=== PATIENT | female | born 1990 | race Caucasian/White ===

== ENCOUNTER 2016-06-14 18:13 | Inpatient (IN) | payer OTHER ==
[~2016-06-14] VITALS: Ht 167.6 cm; Wt 88.0 kg
[~2016-06-14 18:13] MED LIST: ACET50TA PO; PRENTAB9 PO
[2016-06-14] MEDS ORDERED: LACTATED RINGER'S 1000 ML IV STA (19:20)
[2016-06-14] MEDS ORDERED: miSOPROStol 50 MCG 1/2 TAB (S0191) PO SCH (19:30)
[2016-06-14] MEDS ORDERED: PROMETHAZINE INJ 25 MG/ML VIAL (J2550) IV PRN (19:30)
[2016-06-14] MEDS ORDERED: hydrOXYzine 50 MG TAB PO PRN (19:30)
[2016-06-14] MEDS ORDERED: BUTORPHANOL 2 MG/ML INJ (J0595) IV PRN (19:30)
[2016-06-14 20:00] LABS: MEAN CORPUSCULAR HEMOGLOBIN 30.8 pg (27.0-33.0); MEAN CORPUSCULAR HGB CONC 34.2 g/dl (32.0-36.5); RED CELL DISTRIBUTION WIDTH 13.2 % (11.5-14.5); WHITE BLOOD COUNT 7.4 K/mm3 (4.0-10.0)
[2016-06-14 20:04] VITALS: BP 100/60
[2016-06-14 21:14] VITALS: BP 103/63
[2016-06-14] MEDS ORDERED: LR 1,000 ML IV SCH (22:02)
[2016-06-14 22:14] VITALS: BP 120/83
[2016-06-14] MEDS ORDERED: OXYTOCIN DRIP 30 UNITS in APPROPRIATE DILUENT 1 EA IV SCH (22:15)
[2016-06-15] VITALS (13 sets, daily range): BP systolic 104–141; BP diastolic 55–94
[2016-06-15] MEDS ORDERED: FENTANYL 2MCG/ML ROPIVACAINE 0.2% NACL 250 ML CADD As Ordered ONE (02:59)
[2016-06-15] MEDS ORDERED: ePHEDrine SULFATE 25 MG/5 ML(5MG/ML) SYRINGE As Ordered ONE (04:20)
[2016-06-15] MEDS ORDERED: REFRIGERATOR IV KEYS XX PRN (04:30)
[2016-06-15] MEDS ORDERED: FENTANYL/ROPIVACAINE/NACL CADD 250 ML EPIDURAL SCH (04:30)
[2016-06-15] MEDS ORDERED: ONDANSETRON 4MG/2ML VIAL (J2405) IV PRN ×2 (04:30→08:30)
[2016-06-15] MEDS ORDERED: ePHEDrine SULFATE 25 MG/5 ML(5MG/ML) SYRINGE IV PRN (04:30)
[2016-06-15] MEDS ORDERED: NALOXONE INJ 0.4 MG/1 ML VIAL (J2310) IV PRN (04:30)
[2016-06-15] MEDS ORDERED: LACTATED RINGER'S 1000 ML IV PRN (04:30)
[2016-06-15] MEDS ORDERED: EPIDURAL COMMENT XX SCH (04:30)
[2016-06-15] MEDS ORDERED: EPIDURAL/PCA KEYS XX PRN (04:30)
[2016-06-15] MEDS ORDERED: diphenhydrAMINE INJ 50MG/ML VIAL (J1200) IV PRN (04:30)
[2016-06-15] MEDS ORDERED: TERBUTALINE SULFATE 1 MG/ML VIAL (J3105) As Ordered ONE (04:48)
[2016-06-15 08:11] LABS: CORD GAS ABE V -7.4; CORD GAS HCO3 V 20.7 MEQ/L; CORD GAS O2 SAT V 42.9 %; CORD GAS PCO2 V 52.1 mmHg; CORD GAS PH V 7.218 UNITS; CORD GAS SBC V 17.3 MEQ/L; CORD GAS TCO2 V 22.3 MEQ/L
[2016-06-15] MEDS ORDERED: DOCUSATE SODIUM 100 MG CAP PO PRN (08:30)
[2016-06-15] MEDS ORDERED: OXYTOCIN DRIP 30 UNITS in APPROPRIATE DILUENT 1 EA IV ONE (08:30)
[2016-06-15] MEDS ORDERED: METHYLERGONOVINE MALEATE 0.2 MG TAB PO PRN (08:30)
[2016-06-15] MEDS ORDERED: MEASLES,MUMPS,RUBELLA VACCINE INJ (MMR-II) (90707) SC SCH (08:30)
[2016-06-15] MEDS ORDERED: RHOGAM 300 MCG (1500 IU) INJ (J2790) IM SCH (08:30)
[2016-06-15] MEDS: ACETAMINOPHEN 500 MG TAB PO PRN ×2 (09:25→16:45)
[2016-06-15] MEDS: PRENATAL VITAMIN TAB PO SCH (09:25)
--- NOTE | 2016-06-15 15:01 | HPE ---
DATE OF ADMISSION: 06/14/2016 25-year-old, 1, estimated date of delivery 06/08/2016, here at 41 weeks for induction of labor. Denies loss of fluid or bleeding. Fetus is active. Last normal menstrual period 08/24/2015 for expected date of delivery ([facility]ELBA) of 05/30/2016. Sonogram at 5 weeks confirmed date 06/08/2016. Anatomy scan within normal limits, followed by growth sonograms due to history of gastric bypass. ALLERGIES: No known drug allergies. MEDICAL/SURGICAL: 1. History gastric bypass 2014. 2. Cholecystectomy 2015. FAMILY HISTORY: Diabetes, hypertension and heart disease. SOCIAL HISTORY: Single. Father of the baby present and supportive. Remote history of Chlamydia in 2009. Denies tobacco, alcohol or drugs. OBJECTIVE: Prepregnancy weight 189, total weight gain 15 pounds. A positive, antibody negative, rubella equivocal. VDRL, hepatitis B, hepatitis C, HIV, gonorrhea and Chlamydia all negative. Declined genetic screening. 1-hour glucose not done due to surgical history. Week of blood sugar monitoring within normal limits. Group B strep is negative. No apparent distress. Vital signs are stable. Heart rate is regular. Respirations are easy. Abdomen soft, gravid, longitudinal lie. Rare contractions. heart 145, moderate variability with accelerations. Sterile vaginal exam 1 cm, 50%, -2 station, cephalic, light show. ASSESSMENT: Primipara at 41 weeks for induction of labor, Category I tracing. PLAN: Admit per consult Dr. Calderon. Misoprostol cervical ripening. The patient plans epidural.
[2016-06-15] MEDS: DIBUCAINE 1% OINTMENT 30GM TOP PRN (17:37)
[2016-06-15] MEDS: IBUPROFEN 800 MG TAB PO PRN (21:03)
[2016-06-16] MEDS: ACETAMINOPHEN 500 MG TAB PO PRN ×2 (03:54→12:57)
[2016-06-16 05:55] VITALS: BP 153/84
[2016-06-16] MEDS ORDERED: TERBUTALINE SULFATE 1 MG/ML VIAL (J3105) SC ONE (07:45)
[2016-06-16] MEDS: PRENATAL VITAMIN TAB PO SCH (08:42)
--- NOTE | 2016-06-16 11:21 | DN ---
DATE OF DELIVERY: 06/15/2016 PREDELIVERY DIAGNOSIS: Term , labor. POST DELIVERY DIAGNOSIS: Delivered. PROCEDURE: Outlet vacuum assisted vaginal delivery. MERCURY PURIFIER: Dr. Art Calderon ANESTHESIA: Epidural. ESTIMATED BLOOD LOSS: 300 mL. FINDINGS: 6 pound 8 ounce, 2936 gram female infant. 5, 8 and 8. Meconium present. DELIVERY SUMMARY: After approximately 45 minutes second stage the patient was noted to have tachycardia with recurrent deep variable decelerations. A decision was made to assist delivery at +3 station with obstetrical vacuum. The vacuum was applied at +3 station to the right occiput anterior (NATALIE) vertex . Delivery was accomplished without difficulty. A lose nuchal cord x1 was reduced manually. The shoulders delivered spontaneously with ease. The cord was doubly clamped and cut. The infant was handed off to the waiting water resources technical officer. The placenta delivered spontaneously and appeared to be intact. The patient received intravenous (IV) Pitocin immediately after delivery of the placenta. A second degree perineal laceration was repaired with #3-0 chromic in the usual fashion. Sponge and needle counts were correct.
[2016-06-16 18:00] VITALS: BP 130/74
[2016-06-16] MEDS: DIBUCAINE 1% OINTMENT 30GM TOP PRN (20:47)
[2016-06-17 06:14] VITALS: BP 139/67
[2016-06-17] MEDS: PRENATAL VITAMIN TAB PO SCH (07:39)
[2016-06-17] MEDS ORDERED: ACET50TA PO (09:22)
[2016-06-17] MEDS ORDERED: PRENTAB9 PO (09:22)
[2016-06-17] MEDS ORDERED: IBUP-1114 PO (09:22)
[2016-06-17] MEDS: IBUPROFEN 800 MG TAB PO PRN (10:22)
== END 2016-06-17 10:25 | disposition home or self-care (01) | DRG 560 ==
LOC: M LDI 18:13 → M OBS 06-15 14:54
PROVIDERS: ADMIT Advanced Practice Midwife; ATTEND Advanced Practice Midwife
PROC: 3E0P7GC Introduction of Other Therapeutic Substance into Female Reproductive, Via Natural or Artificial Opening (ICD-10-PCS; 2016-06-14)
PROC: 10D07Z6 Extraction of Products of Conception, Vacuum, Via Natural or Artificial Opening (ICD-10-PCS; principal; 2016-06-15)
PROC: 0KQM0ZZ Repair Perineum Muscle, Open Approach (ICD-10-PCS; 2016-06-15)
DX: O48.0 Post-term pregnancy (principal); O76 Abnormality in fetal heart rate and rhythm complicating labor and delivery; Z37.0 Single live birth; Z3A.41 41 weeks gestation of pregnancy; O70.1 Second degree perineal laceration during delivery; O69.82X0 Labor and delivery complicated by other cord entanglement, without compression, not applicable or unspecified

== ENCOUNTER → 2016-09-04 | Outpatient (REF) | payer OTHER ==
[~2016-09-04] MED LIST changes: +IBUP-1114 PO
[2016-09-04 12:45] LABS: FOLATE 15.4 NG/ML (>5.4)
[2016-09-04 12:51] LABS: ALBUMIN 3.7 GM/DL (3.2-5.2); ALBUMIN/GLOBULIN RATIO 1.03 (1.00-1.93); ALKALINE PHOSPHATASE 64 U/L (45-117); ALT/SGPT 22 U/L (12-78); ANION GAP 1 MEQ/L (8-16); AST/SGOT 13 U/L (15-37); BILIRUBIN,TOTAL 0.3 MG/DL (0.2-1.0); BLOOD UREA NITROGEN 13 MG/DL (7-18); CALCIUM LEVEL 9.1 MG/DL (8.5-10.1); CARBON DIOXIDE LEVEL 34 MEQ/L (21-32); CHLORIDE LEVEL 106 MEQ/L (98-107); CREATININE FOR GFR 0.67 MG/DL (0.55-1.02); GLOMERULAR FILTRATION RATE > 60.0 (>60); GLUCOSE, FASTING 85 MG/DL (70-105); POTASSIUM SERUM 3.9 MEQ/L (3.5-5.1); SODIUM LEVEL 141 MEQ/L (136-145); TOTAL PROTEIN 7.3 GM/DL (6.4-8.2)
[2016-09-04 12:56] LABS: BASO % 0.4 % (0.0-1.0); EOS # 0.1 K/mm3 (0.0-0.50); LARGE UNSTAINED CELL # 0.1 K/mm3 (0.0-0.4); LARGE UNSTAINED CELL % 1.3 % (0.0-4.0); LYMPH # 1.8 K/mm3 (1.5-6.5); LYMPH % 38.4 % (24.0-44.0); MEAN CORPUSCULAR HEMOGLOBIN 29.6 pg (27.0-33.0); MEAN CORPUSCULAR HGB CONC 32.2 g/dl (32.0-36.5); MEAN CORPUSCULAR VOLUME 91.7 fl (80.0-96.0); MONO # 0.3 K/mm3 (0.0-0.8); MONO % 6.2 % (0.0-5.0); NEUTROPHILS # 2.5 K/mm3 (1.8-7.7); NEUTROPHILS % 51.7 % (36.0-66.0); PLATELET COUNT, AUTOMATED 323 k/mm3 (150-450); RED CELL DISTRIBUTION WIDTH 12.9 % (11.5-14.5); WHITE BLOOD COUNT 4.8 K/mm3 (4.0-10.0)
[2016-09-04 13:26] LABS: VITAMIN B12 LEVEL 467 PG/ML (247-911)
[2016-09-09 00:06] LABS: VITAMIN D 1,25 DIHYDROXY 22.7 pg/mL (19.9-79.3)
== END ==
LOC: M SFHCCLAY 08:13
PROVIDERS: ATTEND Family Medicine
DX: Z98.84 Bariatric surgery status (principal)

== ENCOUNTER → 2016-12-29 | Outpatient (REF) | payer OTHER ==
[2016-12-29 18:35] LABS: ALBUMIN 3.7 GM/DL (3.2-5.2); ALBUMIN/GLOBULIN RATIO 0.95 (1.00-1.93); ALKALINE PHOSPHATASE 64 U/L (45-117); ALT/SGPT 16 U/L (12-78); ANION GAP 6 MEQ/L (8-16); AST/SGOT 10 U/L (15-37); BILIRUBIN,TOTAL 0.5 MG/DL (0.2-1.0); BLOOD UREA NITROGEN 12 MG/DL (7-18); CALCIUM LEVEL 9.2 MG/DL (8.5-10.1); CARBON DIOXIDE LEVEL 28 MEQ/L (21-32); CHLORIDE LEVEL 103 MEQ/L (98-107); CREATININE FOR GFR 0.76 MG/DL (0.55-1.02); GLOMERULAR FILTRATION RATE > 60.0 (>60); GLUCOSE, FASTING 82 MG/DL (70-105); POTASSIUM SERUM 3.8 MEQ/L (3.5-5.1); SODIUM LEVEL 137 MEQ/L (136-145); TOTAL PROTEIN 7.6 GM/DL (6.4-8.2)
== END ==
LOC: M SFHCCLAY 10:27
PROVIDERS: ATTEND Nurse Practitioner
DX: Z00.00 Encounter for general adult medical examination without abnormal findings (principal); R53.83 Other fatigue

== ENCOUNTER → 2017-09-17 | Outpatient (REF) | payer OTHER ==
[2017-09-17 16:34] LABS: ALBUMIN/GLOBULIN RATIO 1.11 (1.00-1.93); ALKALINE PHOSPHATASE 78 U/L (45-117); ALT/SGPT 17 U/L (12-78); ANION GAP 7 MEQ/L (8-16); AST/SGOT 14 U/L (7-37); BILIRUBIN,TOTAL 0.2 MG/DL (0.2-1.0); BLOOD UREA NITROGEN 11 MG/DL (7-18); CARBON DIOXIDE LEVEL 28 MEQ/L (21-32); CHLORIDE LEVEL 107 MEQ/L (98-107); GLOMERULAR FILTRATION RATE > 60.0 (>60); GLUCOSE, FASTING 90 MG/DL (70-100); IRON (FE) 71 UG/DL (50-170); PERCENT SATURATION 19.5 % (13.2-45.0); POTASSIUM SERUM 4.5 MEQ/L (3.5-5.1); SODIUM LEVEL 142 MEQ/L (136-145); TOTAL IRON BINDING CAPACITY 365 UG/DL (250-450); TOTAL PROTEIN 7.6 GM/DL (6.4-8.2)
[2017-09-17 16:40] LABS: VITAMIN B12 LEVEL 359 PG/ML (247-911)
[2017-09-17 16:41] LABS: HEMATOCRIT 39.2 % (36.0-47.0); HEMOGLOBIN 12.7 g/dl (12.0-15.5); MEAN CORPUSCULAR HEMOGLOBIN 29.3 pg (27.0-33.0); MEAN CORPUSCULAR HGB CONC 32.4 g/dl (32.0-36.5); MEAN CORPUSCULAR VOLUME 90.3 fl (80.0-96.0); PLATELET COUNT, AUTOMATED 490 10^3/uL (150-450); RED BLOOD COUNT 4.34 10^6/uL (4.00-5.40); RED CELL DISTRIBUTION WIDTH 13.7 % (11.5-14.5); WHITE BLOOD COUNT 7.2 10^3/uL (4.0-10.0)
[2017-09-17 16:43] LABS: HEMATOCRIT 39.2 % (36.0-47.0)
[2017-09-18 12:04] LABS: PRETREATED FOLATE FOR RBCFOL 5.8 NG/ML; RBC FOLATE 310.7 NG/ML (280-791)
[2017-09-22 00:07] LABS: VITAMIN D 1,25 DIHYDROXY 60.9 pg/mL (19.9-79.3)
== END ==
LOC: M SFHCCLAY 13:01
DX: Z98.84 Bariatric surgery status (principal)

== ENCOUNTER → 2017-11-06 | Outpatient (REF) | payer OTHER ==
[2017-11-06 17:33] LABS: TOTAL T3 161.4 NG/DL (60.0-181.0)
[2017-11-06 17:36] LABS: THYROXINE (T4) 11.3 UG/DL (4.5-12.0)
== END ==
LOC: M SFHCCLAY 13:57
DX: R63.5 Abnormal weight gain (principal)

== ENCOUNTER → 2017-12-14 | Outpatient (REF) | payer OTHER | LOC: M SFHCCLAY 17:55 | DX: R19.7 Diarrhea, unspecified (principal) | CPT/HCPCS: 87507 ==

== ENCOUNTER → 2018-03-03 | Outpatient (REF) | payer OTHER | LOC: M LAB REF 09:47 | DX: J02.9 Acute pharyngitis, unspecified (principal) ==

== ENCOUNTER → 2018-05-07 | Outpatient (REF) | payer OTHER | LOC: M LAB REF 18:46 | DX: Z12.4 Encounter for screening for malignant neoplasm of cervix (principal); N76.0 Acute vaginitis | CPT/HCPCS: 88142 ==

== ENCOUNTER → 2018-11-11 | Outpatient (CLI) | payer OTHER ==
[~2018-11-11] MED LIST changes: -ACET50TA PO; +MAPA500T2 PO
[2018-11-11 19:54] LABS: BASO % 0.2 % (0.0-1.0); EOS % 0.5 % (0.0-3.0); HEMATOCRIT 37.6 % (36.0-47.0); HEMOGLOBIN 12.2 g/dl (12.0-15.5); LYMPH # 1.8 10^3/uL (1.5-6.5); LYMPH % 21.4 % (24.0-44.0); MEAN CORPUSCULAR HEMOGLOBIN 30.6 pg (27.0-33.0); MEAN CORPUSCULAR HGB CONC 32.4 g/dl (32.0-36.5); MEAN CORPUSCULAR VOLUME 94.2 fl (80.0-96.0); MONO # 0.4 10^3/uL (0.0-0.8); MONO % 4.8 % (0.0-5.0); PLATELET COUNT, AUTOMATED 338 10^3/uL (150-450); RED BLOOD COUNT 3.99 10^6/uL (4.00-5.40); WHITE BLOOD COUNT 8.2 10^3/uL (4.0-10.0)
[2018-11-11 20:03] LABS: ALBUMIN 3.4 GM/DL (3.2-5.2); ALT/SGPT 14 U/L (12-78); BILIRUBIN,TOTAL 0.1 MG/DL (0.2-1.0); BLOOD UREA NITROGEN 16 MG/DL (7-18); CALCIUM LEVEL 9.2 MG/DL (8.5-10.1); CARBON DIOXIDE LEVEL 26 MEQ/L (21-32); CHLORIDE LEVEL 108 MEQ/L (98-107); CREATININE FOR GFR 0.94 MG/DL (0.55-1.30); GLOMERULAR FILTRATION RATE > 60.0 (>60); GLUCOSE, FASTING 90 MG/DL (70-100); IRON (FE) 58 UG/DL (50-170); POTASSIUM SERUM 4.6 MEQ/L (3.5-5.1); SODIUM LEVEL 142 MEQ/L (136-145); TOTAL PROTEIN 7.4 GM/DL (6.4-8.2)
[2018-11-11 20:11] LABS: VITAMIN B12 LEVEL 342 PG/ML (247-911)
[2018-11-11 20:12] LABS: FOLATE 8.1 NG/ML (>5.4)
== END ==
LOC: M WUC 16:22
PROVIDERS: ATTEND Family Medicine
DX: Z98.84 Bariatric surgery status (principal)

== ENCOUNTER → 2019-01-14 | Outpatient (REF) | payer OTHER | LOC: M SFHCCLAY 14:42 | PROVIDERS: ATTEND Nurse Practitioner Family | DX: J02.9 Acute pharyngitis, unspecified (principal) ==

== ENCOUNTER → 2019-07-22 | Outpatient (CLI) | payer OTHER | LOC: M WUC 13:59 | PROVIDERS: ATTEND Family Medicine | DX: Z11.1 Encounter for screening for respiratory tuberculosis (principal) ==

== ENCOUNTER → 2019-12-20 | Outpatient (REF) | payer BC ==
[2019-12-20 19:14] LABS: BASO % 0.2 % (0.0-1.0); EOS # 0.1 10^3/uL (0.0-0.5); EOS % 1.3 % (0.0-3.0); HEMATOCRIT 36.4 % (36.0-47.0); HEMOGLOBIN 11.5 g/dl (12.0-15.5); LYMPH # 1.9 10^3/uL (1.5-5.0); LYMPH % 30.6 % (24.0-44.0); MEAN CORPUSCULAR HEMOGLOBIN 29.1 pg (27.0-33.0); MEAN CORPUSCULAR HGB CONC 31.6 g/dl (32.0-36.5); MEAN CORPUSCULAR VOLUME 92.2 fl (80.0-96.0); MONO # 0.5 10^3/uL (0.0-0.8); MONO % 7.2 % (0.0-5.0); NEUTROPHILS # 3.8 10^3/uL (1.5-8.5); NEUTROPHILS % 60.5 % (36.0-66.0); PLATELET COUNT, AUTOMATED 350 10^3/uL (150-450); RED BLOOD COUNT 3.95 10^6/uL (4.00-5.40); WHITE BLOOD COUNT 6.3 10^3/uL (4.0-10.0)
[2019-12-20 19:51] LABS: ALBUMIN 3.4 GM/DL (3.2-5.2); ALT/SGPT 34 U/L (12-78); BILIRUBIN,TOTAL 0.3 MG/DL (0.2-1.0); BLOOD UREA NITROGEN 12 MG/DL (7-18); CALCIUM LEVEL 8.1 MG/DL (8.5-10.1); CARBON DIOXIDE LEVEL 26 MEQ/L (21-32); CHLORIDE LEVEL 108 MEQ/L (98-107); CHOLESTEROL LEVEL 162 MG/DL (<200); CREATININE FOR GFR 0.84 MG/DL (0.55-1.30); GLOMERULAR FILTRATION RATE > 60.0 (>60); GLUCOSE, FASTING 84 MG/DL (70-100); HDL CHOLESTEROL 54 MG/DL (>40); IRON (FE) 127 UG/DL (50-170); LDL CHOLESTEROL 94 MG/DL (<100); NON-HDL-C 108 MG/DL; POTASSIUM SERUM 4.3 MEQ/L (3.5-5.1); SODIUM LEVEL 141 MEQ/L (136-145); THYROXINE (T4) 6.7 UG/DL (4.5-12.0); TOTAL PROTEIN 6.8 GM/DL (6.4-8.2); TRIGLYCERIDES LEVEL 68 MG/DL (<150)
[2019-12-20 19:54] LABS: FOLATE 6.3 NG/ML (>5.4); VITAMIN B12 LEVEL 241 PG/ML (247-911)
[2019-12-20 20:01] LABS: HEMOGLOBIN A1c 5.2 %
== END ==
LOC: M SFHCLERA 16:10
PROVIDERS: ATTEND Family Medicine
DX: R63.5 Abnormal weight gain (principal); Z98.84 Bariatric surgery status

== ENCOUNTER → 2020-02-09 | Outpatient (REF) | payer BC | LOC: M SFHCCLAY 09:45 | PROVIDERS: ATTEND Nurse Practitioner Family | DX: R07.0 Pain in throat (principal); R50.9 Fever, unspecified | CPT/HCPCS: 87081; U0003 ==

== ENCOUNTER → 2020-08-13 | Outpatient (REF) | payer BC | LOC: M SFHCCLAY 13:32 | PROVIDERS: ATTEND Physician Assistant | DX: R19.7 Diarrhea, unspecified (principal) ==

== ENCOUNTER → 2020-09-21 | Outpatient (CLI) | payer BC ==
[2020-09-21 15:58] LABS: BASO % 0.3 % (0.0-1.0); EOS # 0.1 10^3/uL (0.0-0.5); EOS % 0.6 % (0.0-3.0); HEMATOCRIT 38.8 % (36.0-47.0); HEMOGLOBIN 12.2 g/dl (12.0-15.5); LYMPH # 1.8 10^3/uL (1.5-5.0); LYMPH % 22.2 % (24.0-44.0); MEAN CORPUSCULAR HEMOGLOBIN 28.8 pg (27.0-33.0); MEAN CORPUSCULAR HGB CONC 31.4 g/dl (32.0-36.5); MEAN CORPUSCULAR VOLUME 91.7 fl (80.0-96.0); MONO # 0.5 10^3/uL (0.0-0.8); MONO % 6.3 % (2.0-8.0); NEUTROPHILS # 5.6 10^3/uL (1.5-8.5); NEUTROPHILS % 70.2 % (36.0-66.0); PLATELET COUNT, AUTOMATED 384 10^3/uL (150-450); RED BLOOD COUNT 4.23 10^6/uL (4.00-5.40); WHITE BLOOD COUNT 7.9 10^3/uL (4.0-10.0)
[2020-09-21 16:28] LABS: ALBUMIN 3.5 GM/DL (3.2-5.2); ALT/SGPT 21 U/L (12-78); BILIRUBIN,TOTAL 0.1 MG/DL (0.2-1.0); BLOOD UREA NITROGEN 16 MG/DL (7-18); CARBON DIOXIDE LEVEL 30 MEQ/L (21-32); CHLORIDE LEVEL 107 MEQ/L (98-107); GLOMERULAR FILTRATION RATE > 60.0 (>60); GLUCOSE, FASTING 83 MG/DL (70-100); IRON (FE) 32 UG/DL (50-170); POTASSIUM SERUM 4.4 MEQ/L (3.5-5.1); SODIUM LEVEL 139 MEQ/L (136-145); TOTAL PROTEIN 7.1 GM/DL (6.4-8.2)
[2020-09-24 14:49] LABS: FOLATE 5.3 NG/ML (>5.4); VITAMIN B12 LEVEL 317 PG/ML (247-911)
== END ==
LOC: M WUC 14:17
PROVIDERS: ATTEND Family Medicine
DX: Z98.84 Bariatric surgery status (principal)

== ENCOUNTER → 2020-10-16 | Outpatient (REF) | payer BC | LOC: M SFHCWAGY 09:48 | PROVIDERS: ATTEND Advanced Practice Midwife | DX: Z12.4 Encounter for screening for malignant neoplasm of cervix (principal) ==

== ENCOUNTER → 2020-11-19 | Outpatient (CLI) | payer BC ==
[2020-11-19 20:21] LABS: BASO % 0.3 % (0.0-1.0); EOS # 0.1 10^3/uL (0.0-0.5); HEMATOCRIT 37.4 % (36.0-47.0); HEMOGLOBIN 11.6 g/dl (12.0-15.5); LYMPH # 1.5 10^3/uL (1.5-5.0); MEAN CORPUSCULAR HEMOGLOBIN 29.1 pg (27.0-33.0); MEAN CORPUSCULAR VOLUME 93.7 fl (80.0-96.0); MONO # 0.4 10^3/uL (0.0-0.8); MONO % 6.2 % (2.0-8.0); NEUTROPHILS # 4.1 10^3/uL (1.5-8.5); NEUTROPHILS % 67.2 % (36.0-66.0); PLATELET COUNT, AUTOMATED 340 10^3/uL (150-450); RED BLOOD COUNT 3.99 10^6/uL (4.00-5.40); WHITE BLOOD COUNT 6.1 10^3/uL (4.0-10.0)
== END ==
LOC: M WUC 15:35
PROVIDERS: ATTEND Family Medicine
DX: D64.9 Anemia, unspecified (principal)

== ENCOUNTER → 2021-01-15 | Outpatient (CLI) | payer BC ==
[2021-01-15 15:26] LABS: HEMATOCRIT 39.8 % (36.0-47.0); HEMOGLOBIN 12.9 g/dl (12.0-15.5); MEAN CORPUSCULAR HEMOGLOBIN 29.6 pg (27.0-33.0); MEAN CORPUSCULAR HGB CONC 32.4 g/dl (32.0-36.5); MEAN CORPUSCULAR VOLUME 91.3 fl (80.0-96.0); PLATELET COUNT, AUTOMATED 298 10^3/uL (150-450); RED BLOOD COUNT 4.36 10^6/uL (4.00-5.40); WHITE BLOOD COUNT 6.8 10^3/uL (4.0-10.0)
[2021-01-15 16:00] LABS: TOTAL PROTEIN,RANDOM URINE 25.7 MG/DL (0.0-12.0)
[2021-01-15 16:05] LABS: ALT/SGPT 18 U/L (12-78); BILIRUBIN,TOTAL 0.1 MG/DL (0.2-1.0); CREATININE FOR GFR 0.61 MG/DL (0.55-1.30); FREE T4 0.93 NG/DL (0.76-1.46); GLOMERULAR FILTRATION RATE > 60.0 (>60); LDH LACTATE DEHYDROGENASE 158 U/L (84-246); URIC ACID 3.6 MG/DL (2.6-6.0)
[2021-01-15 16:09] LABS: HEMOGLOBIN A1c 5.1 %
[2021-01-15 16:47] LABS: HEPATITIS C VIRUS ABY INDEX 0.1 INDEX (<0.8); HIV 1&2 SCREEN CENTAUR NEGATIVE (NEGATIVE)
[2021-01-15 17:24] LABS: GC DNA AMPLIFICATION NEGATIVE (NEGATIVE)
== END ==
LOC: M WUC 11:38
PROVIDERS: ATTEND Advanced Practice Midwife
DX: O99.841 Bariatric surgery status complicating pregnancy, first trimester (principal); Z3A.00 Weeks of gestation of pregnancy not specified

== ENCOUNTER 2021-02-12 18:11 | Emergency (ER) | payer BC ==
[~2021-02-12] VITALS: Ht 167.6 cm; Wt 129.8 kg
[2021-02-12 18:12] VITALS: BP 136/84
[2021-02-12] MEDS ORDERED: ONDA-83 (18:36)
== END 2021-02-12 19:33 | disposition left against medical advice (07) ==
LOC: M ED 18:11
DX: Z53.21 Procedure and treatment not carried out due to patient leaving prior to being seen by health care provider (principal)

== ENCOUNTER → 2021-02-19 | Outpatient (CLI) | payer BC ==
[~2021-02-19] MED LIST changes: +ONDA-83
== END ==
LOC: M PLALAB 15:17
PROVIDERS: ATTEND Advanced Practice Midwife
DX: Z34.81 Encounter for supervision of other normal pregnancy, first trimester (principal)

== ENCOUNTER 2021-06-28 15:58 | Outpatient (CLI) | payer BC ==
[~2021-06-28] VITALS: Ht 167.6 cm; Wt 129.0 kg
[~2021-06-28 15:58] MED LIST changes: -ONDA-83; +ONDA-83 PO
[2021-06-28 16:23] VITALS: BP 142/76
[2021-06-28] MEDS ORDERED: ACET325C5 PO (16:37)
[2021-06-28] MEDS ORDERED: HOME MED LIST COMPLETE! XX SCH (16:40)
[2021-06-28] MEDS ORDERED: D ME PO (16:40)
[2021-06-28 16:44] VITALS: BP 131/76
[2021-06-28 17:58] VITALS: BP 127/74
== END 2021-06-28 18:15 | disposition home or self-care (01) ==
LOC: M LDO 15:58
PROVIDERS: ATTEND Obstetrics & Gynecology
DX: O26.853 Spotting complicating pregnancy, third trimester (principal); Z3A.32 32 weeks gestation of pregnancy
CPT/HCPCS: 59025; G0378; G0463

== ENCOUNTER → 2021-07-08 | Outpatient (CLI) | payer BC ==
[~2021-07-08] MED LIST changes: +ACET325C5 PO; +D ME PO
== END ==
LOC: M WHC 14:57
PROVIDERS: ATTEND Obstetrics & Gynecology
DX: O26.843 Uterine size-date discrepancy, third trimester (principal); Z3A.33 33 weeks gestation of pregnancy

== ENCOUNTER → 2021-07-23 | Outpatient (REF) | payer BC | LOC: M SFHCWAGY 17:02 | PROVIDERS: ATTEND Specialist | DX: Z34.83 Encounter for supervision of other normal pregnancy, third trimester (principal); Z3A.00 Weeks of gestation of pregnancy not specified ==

== ENCOUNTER 2021-08-17 10:10 | Inpatient (IN) | payer BC ==
[~2021-08-17] VITALS: Ht 167.6 cm; Wt 129.0 kg
[2021-08-17] VITALS (12 sets, daily range): BP systolic 111–137; BP diastolic 55–86
[2021-08-17] MEDS ORDERED: HOME MED LIST COMPLETE! XX SCH (10:35)
[2021-08-17] MEDS ORDERED: OXYTOCIN DRIP 30 UNITS in IV 1 EA IV PRN ×4 (12:00)
[2021-08-17] MEDS ORDERED: LACTATED RINGER'S 1000 ML IV PRN (12:00)
[2021-08-17] MEDS ORDERED: METHYLERGONOVINE MALEATE 0.2 MG/ML VIAL (J2210) IM PRN (12:00)
[2021-08-17] MEDS ORDERED: CARBOPROST TROMETHAMINE 250 MCG/ML AMP IM PRN (12:00)
[2021-08-17] MEDS ORDERED: TRANEXAMIC ACID INJection 1,000 MG in NS 100 ML IV PRN (12:00)
[2021-08-17] MEDS ORDERED: miSOPROStol 50MCG 1/2 TABLET PO ONE (12:00)
[2021-08-17] MEDS: LR 1,000 ML IV SCH ×2 (12:50→19:07)
[2021-08-17 12:55] LABS: HEMATOCRIT 32.1 % (36.0-47.0); HEMOGLOBIN 10.5 g/dl (12.0-15.5); MEAN CORPUSCULAR HEMOGLOBIN 28.2 pg (27.0-33.0); MEAN CORPUSCULAR HGB CONC 32.7 g/dl (32.0-36.5); MEAN CORPUSCULAR VOLUME 86.3 fl (80.0-96.0); PLATELET COUNT, AUTOMATED 250 10^3/uL (150-450); RED BLOOD COUNT 3.72 10^6/uL (4.00-5.40); WHITE BLOOD COUNT 8.8 10^3/uL (4.0-10.0)
[2021-08-17] MEDS ORDERED: miSOPROStol 25MCG 1/4 TABLET PO ONE (20:00)
[2021-08-18] VITALS (54 sets, daily range): BP systolic 73–163; BP diastolic 48–93
[2021-08-18] MEDS: LR 1,000 ML IV SCH ×2 (01:52→09:04)
[2021-08-18] MEDS ORDERED: OXYTOCIN DRIP 30 UNITS in IV 1 EA IV SCH (03:15)
[2021-08-18] MEDS ORDERED: REFLB XX ONE (05:00)
[2021-08-18] MEDS ORDERED: FENTANYL 2MCG/ML ROPIVACAINE 0.2% IN 0.9% NACL 100ML IVBAG As Ordered ONE (05:01)
[2021-08-18] MEDS ORDERED: REFRIGERATOR IV KEYS XX PRN (06:40)
[2021-08-18] MEDS ORDERED: EPIDURAL/PCA KEYS XX PRN (06:40)
[2021-08-18] MEDS ORDERED: ONDANSETRON 4MG/2ML VIAL IV PRN ×2 (06:40→17:10)
[2021-08-18] MEDS ORDERED: diphenhydrAMINE 50MG/ML VIAL (J1200) IV PRN (06:40)
[2021-08-18] MEDS ORDERED: FENTANYL/ROPIVACAINE/NACL BAG 100 ML EPIDURAL SCH (06:40)
[2021-08-18] MEDS ORDERED: LACTATED RINGER'S 1000 ML IV PRN (06:40)
[2021-08-18] MEDS ORDERED: EPIDURAL COMMENT XX SCH (06:40)
[2021-08-18] MEDS ORDERED: NALOXONE INJ 0.4MG/1ML VIAL (J2310 PER 1MG) IV PRN (06:40)
[2021-08-18] MEDS: ePHEDrine SULFATE 25 MG/5 ML(5MG/ML) SYRINGE IV PRN ×3 (07:50→16:50)
[2021-08-18] MEDS: PRENATAL VITAMINS CHEWABLE TABLET PO SCH (09:00)
[2021-08-18] MEDS ORDERED: RHOGAM 300 MCG (1500 IU) INJ (J2790) IM SCH (17:10)
[2021-08-18] MEDS ORDERED: DOCUSATE SODIUM 100MG CAPSULE PO PRN (17:10)
[2021-08-18] MEDS ORDERED: DIBUCAINE 1% OINTMENT 30GM TOP PRN (17:10)
[2021-08-18] MEDS ORDERED: MEASLES,MUMPS,RUBELLA VACCINE INJ (MMR-II) (90707) SC SCH (17:10)
[2021-08-18] MEDS ORDERED: METHYLERGONOVINE MALEATE 0.2 MG TAB PO PRN (17:10)
[2021-08-18] MEDS ORDERED: ACETAMINOPHEN 500 MG TAB PO PRN (17:10)
[2021-08-18] MEDS ORDERED: LOPERAMIDE 2 MG CAPLET PO PRN (17:15)
[2021-08-19] MEDS: IBUPROFEN 600MG TAB PO PRN ×2 (01:24→15:35)
[2021-08-19 06:00] VITALS: BP 145/70
[2021-08-19] MEDS: PRENATAL VITAMINS CHEWABLE TABLET PO SCH (08:24)
[2021-08-19 10:35] LABS: HEMATOCRIT 28.4 % (36.0-47.0); HEMOGLOBIN 9.3 g/dl (12.0-15.5); MEAN CORPUSCULAR HEMOGLOBIN 28.1 pg (27.0-33.0); MEAN CORPUSCULAR HGB CONC 32.7 g/dl (32.0-36.5); MEAN CORPUSCULAR VOLUME 85.8 fl (80.0-96.0); PLATELET COUNT, AUTOMATED 193 10^3/uL (150-450); RED BLOOD COUNT 3.31 10^6/uL (4.00-5.40); WHITE BLOOD COUNT 5.6 10^3/uL (4.0-10.0)
[2021-08-19 11:04] LABS: ALT/SGPT 9 U/L (12-78); BILIRUBIN,TOTAL 0.3 MG/DL (0.2-1.0); CREATININE FOR GFR 0.59 MG/DL (0.55-1.30); GLOMERULAR FILTRATION RATE > 60.0 (>60); LDH LACTATE DEHYDROGENASE 203 U/L (84-246); URIC ACID 4.6 MG/DL (2.6-6.0)
[2021-08-19 18:00] VITALS: BP 125/74
[2021-08-20] MEDS: IBUPROFEN 600MG TAB PO PRN (01:33)
[2021-08-20 06:01] VITALS: BP 128/73
[2021-08-20] MEDS: PRENATAL VITAMINS CHEWABLE TABLET PO SCH ×2 (07:59→09:00)
== END 2021-08-20 12:48 | disposition home or self-care (01) | DRG 560 ==
LOC: M LDI 10:10 → M OBS 08-18 19:30
PROVIDERS: ADMIT Obstetrics & Gynecology; ATTEND Obstetrics & Gynecology
PROC: 3E033VJ Introduction of Other Hormone into Peripheral Vein, Percutaneous Approach (ICD-10-PCS; 2021-08-17)
PROC: 3E0P7VZ Introduction of Hormone into Female Reproductive, Via Natural or Artificial Opening (ICD-10-PCS; 2021-08-17)
PROC: 10E0XZZ Delivery of Products of Conception, External Approach (ICD-10-PCS; principal; 2021-08-18)
PROC: 0KQM0ZZ Repair Perineum Muscle, Open Approach (ICD-10-PCS; 2021-08-18)
DX: O69.81X0 Labor and delivery complicated by cord around neck, without compression, not applicable or unspecified (principal); O70.1 Second degree perineal laceration during delivery; Z37.0 Single live birth; Z3A.39 39 weeks gestation of pregnancy

== ENCOUNTER → 2021-10-18 | Outpatient (CLI) | payer BC | LOC: M LABSMTC 09:21 | PROVIDERS: ATTEND Anesthesiology | DX: Z01.812 Encounter for preprocedural laboratory examination (principal); Z20.822 Contact with and (suspected) exposure to COVID-19 ==

== ENCOUNTER 2021-10-23 06:25 | Day surgery (SDC) | payer BC ==
[~2021-10-23] VITALS: Ht 167.6 cm; Wt 122.5 kg
[~2021-10-23 06:25] MED LIST changes: +LR 1,000 ML IV ONE
[2021-10-23 06:52] LABS: HEMATOCRIT 35.2 % (36.0-47.0); HEMOGLOBIN 11.4 g/dl (12.0-15.5); MEAN CORPUSCULAR HEMOGLOBIN 28.4 pg (27.0-33.0); MEAN CORPUSCULAR HGB CONC 32.4 g/dl (32.0-36.5); MEAN CORPUSCULAR VOLUME 87.8 fl (80.0-96.0); PLATELET COUNT, AUTOMATED 348 10^3/uL (150-450); RED BLOOD COUNT 4.01 10^6/uL (4.00-5.40); WHITE BLOOD COUNT 6.1 10^3/uL (4.0-10.0)
[2021-10-23] MEDS ORDERED: HYDROmorphone HCL 2MG/ML 1ML VIAL As Ordered ONE (06:59)
[2021-10-23] MEDS ORDERED: dexameTHASONE 4 MG/ML 1ML VIAL (J1100 PER 1MG) As Ordered ONE (06:59)
[2021-10-23] MEDS ORDERED: ONDANSETRON 4MG/2ML VIAL As Ordered ONE (06:59)
[2021-10-23] MEDS ORDERED: fentaNYL 100 MCG/2 ML INJECTION As Ordered ONE ×2 (06:59→09:16)
[2021-10-23] MEDS ORDERED: KETOROLAC 60MG 2ML VIAL As Ordered ONE (06:59)
[2021-10-23] MEDS ORDERED: MIDAZOLAM INJ 2MG/2ML VIAL (J2250 PER 1MG) As Ordered ONE (06:59)
[2021-10-23] MEDS ORDERED: propofoL 200 MG/20 ML VIAL As Ordered ONE (07:00)
[2021-10-23] MEDS ORDERED: LIDOCAINE 2% 100MG/5ML SDV (FOR ANES.) As Ordered ONE (07:00)
[2021-10-23] MEDS ORDERED: ROCURONIUM BROMIDE 50 MG/5 ML VIAL As Ordered ONE ×2 (07:00→08:15)
[2021-10-23] MEDS ORDERED: BUPIVACAINE HCL 0.25% 30ML VIAL As Ordered ONE (07:21)
[2021-10-23] MEDS ORDERED: ACETAMINOPHEN 1000MG 100ML IV BTL (OFIRMEV) (J0131 PER 10MG) As Ordered ONE (07:47)
[2021-10-23] MEDS ORDERED: SUGAMMADEX SODIUM 500 MG/5 ML VIAL (BRIDION) As Ordered ONE (08:03)
[2021-10-23] MEDS ORDERED: LABETALOL 100MG/20ML VIAL As Ordered ONE (08:22)
[2021-10-23] MEDS ORDERED: GLYCOPYRROLATE INJ 0.2 MG/ML 2 ML VIAL As Ordered ONE ×2 (08:53→08:54)
[2021-10-23] MEDS ORDERED: LR 1,000 ML IV SCH ×2 (09:30→09:45)
[2021-10-23] MEDS ORDERED: ONDANSETRON 4MG/2ML VIAL IV PRN (09:45)
[2021-10-23] MEDS ORDERED: oxyCODONE 5MG TAB PO PRN (09:45)
[2021-10-23] MEDS ORDERED: fentaNYL 100 MCG/2 ML INJECTION IV PRN (09:45)
[2021-10-23 11:16] VITALS: BP 125/73
== END 2021-10-23 11:48 | disposition home or self-care (01) ==
LOC: M SDC 06:25
PROVIDERS: ATTEND Obstetrics & Gynecology
DX: Z30.2 Encounter for sterilization (principal); Z98.84 Bariatric surgery status
CPT/HCPCS: 36415; 58661; 81025; 85027; 86850; 86900; 86901; 88302; J0131; J1100; J1170; J2250; J2405; J3010

== ENCOUNTER → 2022-08-12 | Outpatient (CLI) | payer BC ==
[~2022-08-12] MED LIST changes: -LR 1,000 ML IV ONE
== END ==
LOC: M CLY 08:16
PROVIDERS: ATTEND Registered Nurse
DX: Z01.810 Encounter for preprocedural cardiovascular examination (principal); E66.01 Morbid (severe) obesity due to excess calories

== ENCOUNTER → 2022-08-12 | Outpatient (REF) | payer BC ==
[2022-08-12 11:38] LABS: BASO % 0.5 % (0.0-1.0); EOS # 0.1 10^3/uL (0.0-0.5); EOS % 1.6 % (0.0-3.0); HEMATOCRIT 35.5 % (36.0-47.0); HEMOGLOBIN 11.2 g/dl (12.0-15.5); LYMPH # 1.1 10^3/uL (1.5-5.0); LYMPH % 24.7 % (24.0-44.0); MEAN CORPUSCULAR HEMOGLOBIN 26.7 pg (27.0-33.0); MEAN CORPUSCULAR HGB CONC 31.5 g/dl (32.0-36.5); MEAN CORPUSCULAR VOLUME 84.7 fl (80.0-96.0); MONO # 0.5 10^3/uL (0.0-0.8); MONO % 11.5 % (2.0-8.0); NEUTROPHILS # 2.6 10^3/uL (1.5-8.5); NEUTROPHILS % 61.7 % (36.0-66.0); PLATELET COUNT, AUTOMATED 350 10^3/uL (150-450); RED BLOOD COUNT 4.19 10^6/uL (4.00-5.40); WHITE BLOOD COUNT 4.3 10^3/uL (4.0-10.0)
[2022-08-12 11:48] LABS: THYROID STIMULATING HORMONE 1.883 uIU/ML (0.55-4.78); TOTAL T3 136.5 NG/DL (60.0-181.0)
[2022-08-12 11:49] LABS: HEMOGLOBIN A1c 5.3 % (4.0-6.0)
[2022-08-12 11:50] LABS: FOLATE 6.41 NG/ML (>5.4); VITAMIN B12 LEVEL 245 PG/ML (211-911)
[2022-08-12 11:52] LABS: IRON (FE) 45 UG/DL (50-170); PERCENT SATURATION 12.2 % (13.2-45.0); TOTAL IRON BINDING CAPACITY 370 UG/DL (250-425)
[2022-08-12 11:53] LABS: ALBUMIN 3.5 G/DL (3.2-5.2); ALKALINE PHOSPHATASE 85 U/L (46-116); ALT/SGPT 15 U/L (7.0-40); AST/SGOT 17 U/L (<34); BILIRUBIN,TOTAL 0.3 MG/DL (0.3-1.2); BLOOD UREA NITROGEN 14 MG/DL (9-23); CALCIUM LEVEL 8.8 MG/DL (8.5-10.1); CARBON DIOXIDE LEVEL 27 MMOL/L (20-31); CHLORIDE LEVEL 105 MMOL/L (98-107); CHOLESTEROL LEVEL 159 MG/DL (<200); CHOLESTEROL RISK RATIO 3.39 (<5); CREATININE FOR GFR 0.68 MG/DL (0.55-1.30); GLOMERULAR FILTRATION RATE > 60.0 (>60); GLUCOSE, FASTING 79 MG/DL (60-100); HDL CHOLESTEROL 46.9 MG/DL (>40); LDL CHOLESTEROL 98.9 MG/DL (<100); MAGNESIUM LEVEL 1.7 MG/DL (1.8-2.4); NON-HDL-C 112 MG/DL; POTASSIUM SERUM 4.4 MMOL/L (3.5-5.1); SODIUM LEVEL 139 MMOL/L (136-145); TRIGLYCERIDES LEVEL 66 MG/DL (<150)
== END ==
LOC: M SFHCCLAY 08:05
PROVIDERS: ATTEND Family Medicine
DX: Z98.84 Bariatric surgery status (principal); E66.01 Morbid (severe) obesity due to excess calories

== ENCOUNTER → 2023-04-10 | Outpatient (REF) | payer BC ==
[2023-04-10 18:30] LABS: BASO % 0.3 % (0.0-1.0); EOS # 0.1 10^3/uL (0.0-0.5); EOS % 0.9 % (0.0-3.0); HEMATOCRIT 36.8 % (36.0-47.0); HEMOGLOBIN 11.8 g/dl (12.0-15.5); LYMPH # 2.1 10^3/uL (1.5-5.0); LYMPH % 33.4 % (24.0-44.0); MEAN CORPUSCULAR HGB CONC 32.1 g/dl (32.0-36.5); MEAN CORPUSCULAR VOLUME 87.2 fl (80.0-96.0); MONO # 0.5 10^3/uL (0.0-0.8); MONO % 7.3 % (2.0-8.0); NEUTROPHILS # 3.7 10^3/uL (1.5-8.5); NEUTROPHILS % 57.9 % (36.0-66.0); PLATELET COUNT, AUTOMATED 316 10^3/uL (150-450); RED BLOOD COUNT 4.22 10^6/uL (4.00-5.40); WHITE BLOOD COUNT 6.4 10^3/uL (4.0-10.0)
[2023-04-10 18:55] LABS: ALBUMIN 3.5 G/DL (3.2-5.2); ALKALINE PHOSPHATASE 76 U/L (46-116); ALT/SGPT 23 U/L (7.0-40); AST/SGOT 21 U/L (<34); BILIRUBIN,TOTAL 0.2 MG/DL (0.3-1.2); BLOOD UREA NITROGEN 7 MG/DL (9-23); CALCIUM LEVEL 9.2 MG/DL (8.5-10.1); CARBON DIOXIDE LEVEL 27 MMOL/L (20-31); CHLORIDE LEVEL 104 MMOL/L (98-107); GLOMERULAR FILTRATION RATE > 60.0 (>60); GLUCOSE, FASTING 83 MG/DL (60-100); IRON (FE) 40 UG/DL (50-170); PERCENT SATURATION 10.4 % (13.2-45.0); POTASSIUM SERUM 4.4 MMOL/L (3.5-5.1); SODIUM LEVEL 139 MMOL/L (136-145); THYROID STIMULATING HORMONE 2.188 uIU/ML (0.55-4.78); TOTAL IRON BINDING CAPACITY 383 UG/DL (250-425); TOTAL PROTEIN 6.9 G/DL (5.7-8.2)
[2023-04-10 18:56] LABS: FERRITIN 6.8 NG/ML (7.3-270.7); TOTAL 25(OH) VITAMIN D 33.8 NG/ML (20.0-100.0)
== END ==
LOC: M LABDRAWC 17:26
PROVIDERS: ATTEND Registered Nurse
DX: E66.01 Morbid (severe) obesity due to excess calories (principal)

== ENCOUNTER → 2023-05-26 | Outpatient (REF) | payer BC ==
[2023-05-26 15:02] LABS: HEMATOCRIT 36.3 % (36.0-47.0); HEMOGLOBIN 11.5 g/dl (12.0-15.5); MEAN CORPUSCULAR HEMOGLOBIN 28.5 pg (27.0-33.0); MEAN CORPUSCULAR HGB CONC 31.7 g/dl (32.0-36.5); MEAN CORPUSCULAR VOLUME 89.9 fl (80.0-96.0); PLATELET COUNT, AUTOMATED 341 10^3/uL (150-450); RED BLOOD COUNT 4.04 10^6/uL (4.00-5.40); WHITE BLOOD COUNT 5.6 10^3/uL (4.0-10.0)
[2023-05-26 15:13] LABS: FOLLICLE STIMULATING HORMONE 7.7 mIU/ML
[2023-05-26 15:14] LABS: LUTEINIZING HORMONE 4.4 mIU/ML
[2023-05-26 15:36] LABS: THYROID STIMULATING HORMONE 1.984 uIU/ML (0.55-4.78)
[2023-05-26 15:37] LABS: FERRITIN 4.3 NG/ML (7.3-270.7)
[2023-05-26 15:38] LABS: ALBUMIN 3.4 G/DL (3.2-5.2); ALKALINE PHOSPHATASE 75 U/L (46-116); ALT/SGPT 14 U/L (7.0-40); AST/SGOT 16 U/L (<34); BILIRUBIN,TOTAL 0.3 MG/DL (0.3-1.2); BLOOD UREA NITROGEN 11 MG/DL (9-23); CALCIUM LEVEL 9.4 MG/DL (8.5-10.1); CARBON DIOXIDE LEVEL 26 MMOL/L (20-31); CHLORIDE LEVEL 108 MMOL/L (98-107); CREATININE FOR GFR 0.59 MG/DL (0.55-1.30); GLOMERULAR FILTRATION RATE > 60.0 (>60); GLUCOSE, FASTING 80 MG/DL (60-100); IRON (FE) 39 UG/DL (50-170); PERCENT SATURATION 11.5 % (13.2-45.0); POTASSIUM SERUM 4.4 MMOL/L (3.5-5.1); SODIUM LEVEL 142 MMOL/L (136-145); TOTAL IRON BINDING CAPACITY 340 UG/DL (250-425); TOTAL PROTEIN 6.8 G/DL (5.7-8.2)
[2023-05-26 15:39] LABS: FOLATE 5.74 NG/ML (>5.4)
[2023-05-26 15:40] LABS: VITAMIN B12 LEVEL 241 PG/ML (211-911)
== END ==
LOC: M SFHCCLAY 07:43
PROVIDERS: ATTEND Family Medicine
DX: Z98.84 Bariatric surgery status (principal); R68.82 Decreased libido; N92.6 Irregular menstruation, unspecified

== ENCOUNTER → 2023-06-10 | Outpatient (REF) | payer BC ==
[2023-06-10 19:51] LABS: RSV AMPLIFICATION NEGATIVE (NEGATIVE)
== END ==
LOC: M SFHCCLAY 16:53
PROVIDERS: ATTEND Physician Assistant
DX: B34.9 Viral infection, unspecified (principal)

== ENCOUNTER → 2023-11-16 | Outpatient (REF) | payer BC ==
[2023-11-16 11:37] LABS: IRON (FE) 62 UG/DL (50-170)
[2023-11-16 11:38] LABS: ALBUMIN 3.3 G/DL (3.2-5.2); ALKALINE PHOSPHATASE 83 U/L (46-116); ALT/SGPT 14 U/L (7.0-40); AST/SGOT 10 U/L (<34); BILIRUBIN,TOTAL 0.4 MG/DL (0.3-1.2); BLOOD UREA NITROGEN 11 MG/DL (9-23); CALCIUM LEVEL 8.9 MG/DL (8.5-10.1); CARBON DIOXIDE LEVEL 27 MMOL/L (20-31); CHLORIDE LEVEL 109 MMOL/L (98-107); CHOLESTEROL LEVEL 152 MG/DL (<200); CHOLESTEROL RISK RATIO 3.26 (<5); CREATININE FOR GFR 0.72 MG/DL (0.55-1.30); GLOMERULAR FILTRATION RATE > 60.0 (>60); GLUCOSE, FASTING 82 MG/DL (60-100); HDL CHOLESTEROL 46.6 MG/DL (>40); MAGNESIUM LEVEL 1.9 MG/DL (1.8-2.4); NON-HDL-C 105.4 MG/DL; POTASSIUM SERUM 4.2 MMOL/L (3.5-5.1); SODIUM LEVEL 140 MMOL/L (136-145); TOTAL PROTEIN 6.6 G/DL (5.7-8.2); TRIGLYCERIDES LEVEL 72 MG/DL (<150)
[2023-11-16 11:42] LABS: FOLATE 6.03 NG/ML (>5.4); HEMATOCRIT 35.6 % (36.0-47.0); HEMOGLOBIN 11.3 g/dl (12.0-15.5); MEAN CORPUSCULAR HGB CONC 31.7 g/dl (32.0-36.5); MEAN CORPUSCULAR VOLUME 88.3 fl (80.0-96.0); PLATELET COUNT, AUTOMATED 366 10^3/uL (150-450); RED BLOOD COUNT 4.03 10^6/uL (4.00-5.40); VITAMIN B12 LEVEL 207 PG/ML (211-911); WHITE BLOOD COUNT 5.9 10^3/uL (4.0-10.0)
== END ==
LOC: M SFHCCLAY 07:31
PROVIDERS: ATTEND Family Medicine
DX: Z98.84 Bariatric surgery status (principal); F33.9 Major depressive disorder, recurrent, unspecified; N92.6 Irregular menstruation, unspecified

== ENCOUNTER → 2023-12-03 | Outpatient (CLI) | payer BC | LOC: M WUC 11:15 | PROVIDERS: ATTEND Nurse Practitioner Family | DX: R51.9 Headache, unspecified (principal); W55.12XA Struck by horse, initial encounter ==

== ENCOUNTER → 2024-01-11 | Outpatient (REF) | payer BC ==
[2024-01-14 13:58] LABS: HPV APTIMA Not Detected (Not Detected)
== END ==
LOC: M SFHCWAGY 10:23
PROVIDERS: ATTEND Nurse Practitioner Family
DX: Z12.4 Encounter for screening for malignant neoplasm of cervix (principal); Z11.51 Encounter for screening for human papillomavirus (HPV); Z01.419 Encounter for gynecological examination (general) (routine) without abnormal findings; Z77.9 Other contact with and (suspected) exposures hazardous to health

== ENCOUNTER → 2024-02-10 | Outpatient (CLI) | payer BC | LOC: M WHC 11:19 | PROVIDERS: ATTEND Nurse Practitioner Family | DX: N92.6 Irregular menstruation, unspecified (principal) ==

== ENCOUNTER → 2024-02-10 | Outpatient (CLI) | payer BC ==
[2024-02-14 15:48] LABS: TESTOSTERONE FREE (DIRECT) 5.2 pg/mL (0.1-6.4)
== END ==
LOC: M PLALAB 12:08
PROVIDERS: ATTEND Nurse Practitioner Family
DX: N92.6 Irregular menstruation, unspecified (principal)

== ENCOUNTER → 2024-03-14 | Outpatient (REF) | payer BC | LOC: M SFHCPLAZ 13:10 | PROVIDERS: ATTEND Nurse Practitioner Family | DX: Z12.4 Encounter for screening for malignant neoplasm of cervix (principal); R87.615 Unsatisfactory cytologic smear of cervix; N73.9 Female pelvic inflammatory disease, unspecified; Z77.9 Other contact with and (suspected) exposures hazardous to health | CPT/HCPCS: 87070; G0123 ==

== ENCOUNTER → 2024-05-04 | Outpatient (CLI) | payer BC | LOC: M WUC 15:50 | PROVIDERS: ATTEND Physician Assistant | DX: S20.212A Contusion of left front wall of thorax, initial encounter (principal); S40.012A Contusion of left shoulder, initial encounter; Y93.9 Activity, unspecified; Y92.9 Unspecified place or not applicable ==

== ENCOUNTER → 2024-08-29 | Outpatient (REF) | payer BC ==
[2024-08-29 17:00] LABS: BASO % 0.3 % (0.0-1.0); EOS # 0.1 10^3/uL (0.0-0.5); EOS % 0.8 % (0.0-3.0); HEMATOCRIT 36.2 % (36.0-47.0); HEMOGLOBIN 11.2 g/dl (12.0-15.5); LYMPH # 1.4 10^3/uL (1.5-5.0); LYMPH % 17.1 % (24.0-44.0); MEAN CORPUSCULAR HEMOGLOBIN 27.1 pg (27.0-33.0); MEAN CORPUSCULAR HGB CONC 30.9 g/dl (32.0-36.5); MEAN CORPUSCULAR VOLUME 87.4 fl (80.0-96.0); MONO # 0.5 10^3/uL (0.0-0.8); MONO % 6.2 % (2.0-8.0); NEUTROPHILS % 75.3 % (36.0-66.0); PLATELET COUNT, AUTOMATED 378 10^3/uL (150-450); RED BLOOD COUNT 4.14 10^6/uL (4.00-5.40); WHITE BLOOD COUNT 7.9 10^3/uL (4.0-10.0)
[2024-08-29 17:13] LABS: ALBUMIN 3.1 G/DL (3.2-5.2); ALKALINE PHOSPHATASE 62 U/L (35-104); ALT/SGPT 10 U/L (7.0-40); AST/SGOT 13 U/L (<34); BILIRUBIN,TOTAL 0.3 MG/DL (0.3-1.2); BLOOD UREA NITROGEN 12 MG/DL (9-23); CALCIUM LEVEL 8.8 MG/DL (8.5-10.1); CARBON DIOXIDE LEVEL 27 MMOL/L (20-31); CHLORIDE LEVEL 105 MMOL/L (98-107); CREATININE FOR GFR 0.81 MG/DL (0.55-1.30); GLOMERULAR FILTRATION RATE > 60.0 (>60); GLUCOSE, FASTING 72 MG/DL (60-100); IRON (FE) 72 UG/DL (50-170); PERCENT SATURATION 18.2 % (13.2-45.0); POTASSIUM SERUM 4.7 MMOL/L (3.5-5.1); SODIUM LEVEL 141 MMOL/L (136-145); TOTAL IRON BINDING CAPACITY 396 UG/DL (250-425)
[2024-08-29 17:20] LABS: FERRITIN 4.6 NG/ML (7.3-270.7); THYROID STIMULATING HORMONE 1.779 uIU/ML (0.55-4.78)
== END ==
LOC: M SFHCCLAY 11:46
PROVIDERS: ATTEND Physician Assistant
DX: R53.83 Other fatigue (principal)

== ENCOUNTER → 2024-09-12 | Outpatient (REF) | payer BC ==
[2024-09-12 17:59] LABS: ALBUMIN 3.3 G/DL (3.2-5.2); ALKALINE PHOSPHATASE 64 U/L (35-104); ALT/SGPT 11 U/L (7.0-40); AST/SGOT 15 U/L (<34); BASO % 0.4 % (0.0-1.0); BILIRUBIN,TOTAL 0.2 MG/DL (0.3-1.2); BLOOD UREA NITROGEN 10 MG/DL (9-23); CALCIUM LEVEL 8.7 MG/DL (8.5-10.1); CARBON DIOXIDE LEVEL 25 MMOL/L (20-31); CHLORIDE LEVEL 105 MMOL/L (98-107); CREATININE FOR GFR 0.67 MG/DL (0.55-1.30); EOS # 0.1 10^3/uL (0.0-0.5); GLOMERULAR FILTRATION RATE > 60.0 (>60); GLUCOSE, FASTING 76 MG/DL (60-100); HEMATOCRIT 35.9 % (36.0-47.0); HEMOGLOBIN 11.3 g/dl (12.0-15.5); MEAN CORPUSCULAR HEMOGLOBIN 27.3 pg (27.0-33.0); MEAN CORPUSCULAR HGB CONC 31.5 g/dl (32.0-36.5); MEAN CORPUSCULAR VOLUME 86.7 fl (80.0-96.0); MONO # 0.5 10^3/uL (0.0-0.8); MONO % 6.2 % (2.0-8.0); NEUTROPHILS # 5.4 10^3/uL (1.5-8.5); NEUTROPHILS % 67.2 % (36.0-66.0); PLATELET COUNT, AUTOMATED 385 10^3/uL (150-450); POTASSIUM SERUM 4.3 MMOL/L (3.5-5.1); RED BLOOD COUNT 4.14 10^6/uL (4.00-5.40); SODIUM LEVEL 139 MMOL/L (136-145); TOTAL PROTEIN 7.5 G/DL (5.7-8.2); WHITE BLOOD COUNT 8.1 10^3/uL (4.0-10.0)
[2024-09-12 18:02] LABS: THYROID STIMULATING HORMONE 2.834 uIU/ML (0.55-4.78)
[2024-09-12 18:22] LABS: HEPATITIS B SURFACE ANTIGEN NEGATIVE (NEGATIVE)
[2024-09-12 18:35] LABS: HIV 1&2 SCREEN NEGATIVE (NEGATIVE)
[2024-09-12 18:43] LABS: HEPATITIS B CORE ANTIBODY IGM NEGATIVE (NEGATIVE); HEPATITIS C VIRUS ABY INDEX 0.05 INDEX (<0.8)
[2024-09-12 18:48] LABS: Trichomonas vaginalis (AMP) NOT DETECTED (NEGATIVE)
[2024-09-12 19:12] LABS: GC DNA AMPLIFICATION NEGATIVE (NEGATIVE)
== END ==
LOC: M SFHCCLAY 12:47
PROVIDERS: ATTEND Physician Assistant
DX: Z20.9 Contact with and (suspected) exposure to unspecified communicable disease (principal); R59.0 Localized enlarged lymph nodes

== ENCOUNTER → 2024-09-19 | Outpatient (REF) | payer BC | LOC: M SFHCCLAY 11:08 | PROVIDERS: ATTEND Family Medicine | DX: R59.0 Localized enlarged lymph nodes (principal); R53.83 Other fatigue ==

== ENCOUNTER → 2024-12-06 | Outpatient (REF) | payer BC ==
[~2024-12-06] MED LIST changes: +BUSP5TA; +LARI1TAB5; +PHEN37.58
[2024-12-06 19:58] LABS: Trichomonas vaginalis (AMP) NOT DETECTED (NEGATIVE)
[2024-12-06 20:22] LABS: GC DNA AMPLIFICATION NEGATIVE (NEGATIVE)
== END ==
LOC: M LAB REF 17:15
PROVIDERS: ATTEND Nurse Practitioner Family
DX: R30.0 Dysuria (principal)

== ENCOUNTER → 2025-01-24 | Outpatient (REF) | payer BC ==
[2025-01-26 15:47] LABS: HPV APTIMA Not Detected (Not Detected)
== END ==
LOC: M SFHCWAGY 09:58
PROVIDERS: ATTEND Nurse Practitioner Family
DX: Z12.4 Encounter for screening for malignant neoplasm of cervix (principal); R87.612 Low grade squamous intraepithelial lesion on cytologic smear of cervix (LGSIL)
CPT/HCPCS: 87624; G0123

== ENCOUNTER → 2025-02-21 | Outpatient (CLI) | payer BC | LOC: M WHC 11:30 | PROVIDERS: ATTEND Nurse Practitioner Family | DX: N83.202 Unspecified ovarian cyst, left side (principal); R93.89 Abnormal findings on diagnostic imaging of other specified body structures ==

== ENCOUNTER → 2025-03-06 | Outpatient (CLI) | payer BC ==
[2025-03-06 11:09] LABS: PLATELET COUNT, AUTOMATED 365 10^3/uL (150-450)
[2025-03-06 11:18] LABS: ALT/SGPT 13 U/L (7.0-40); AST/SGOT 19 U/L (<34); CALCIUM LEVEL 8.8 MG/DL (8.5-10.1); CARBON DIOXIDE LEVEL 25 MMOL/L (20-31); CHLORIDE LEVEL 104 MMOL/L (98-107); CHOLESTEROL LEVEL 187 MG/DL (<200); CHOLESTEROL RISK RATIO 2.87 (<5); CREATININE FOR GFR 0.83 MG/DL (0.55-1.30); GLOMERULAR FILTRATION RATE > 90.0 (>60); IRON (FE) 33 UG/DL (50-170); LDL CHOLESTEROL 100.2 MG/DL (<100); MAGNESIUM LEVEL 1.9 MG/DL (1.8-2.4); NON-HDL-C 122.0 MG/DL; POTASSIUM SERUM 4.1 MMOL/L (3.5-5.1); SODIUM LEVEL 137 MMOL/L (136-145); TRIGLYCERIDES LEVEL 109 MG/DL (<150)
[2025-03-06 11:19] LABS: VITAMIN B12 LEVEL 192 PG/ML (211-911)
[2025-03-06 11:24] LABS: ESTIMATED AVERAGE GLUCOSE 105.0 MG/DL (60-110)
== END ==
LOC: M PLALAB 07:04
PROVIDERS: ATTEND Family Medicine
DX: Z98.84 Bariatric surgery status (principal); R59.0 Localized enlarged lymph nodes; R53.83 Other fatigue

== ENCOUNTER → 2025-03-22 | Outpatient (REF) | payer BC | LOC: M LAB REF 17:00 | PROVIDERS: ATTEND Physician Assistant | DX: R30.0 Dysuria (principal) ==

== ENCOUNTER → 2025-05-08 | Outpatient (REF) | payer BC ==
[2025-05-08 15:37] LABS: Trichomonas vaginalis (AMP) NOT DETECTED (NEGATIVE)
[2025-05-08 16:01] LABS: GC DNA AMPLIFICATION NEGATIVE (NEGATIVE)
== END ==
LOC: M LAB REF 13:54
PROVIDERS: ATTEND Student in an Organized Health Care Education/Training Program
DX: R30.0 Dysuria (principal)